=== PATIENT | male | born 1945 | race Caucasian/White ===

== ENCOUNTER 2016-12-17 11:38 | Inpatient (IN) | payer MEDICARE ==
[~2016-12-17 11:38] MED LIST: ACID CONTROL150 M1 PO; ADULT LOW DOSE81 MG PO; ALEVE220 M2 PO; ALEVE220 MG PO; ASPIRIN81 MG PO; B12 HEALTH1000 MCG/1 PO; CIPRO500 M1 PO; CITRUCEL CLEAR539 GM PO; CITRUCEL POWDE454 GM PO; CLONAZEPAM0.5 M1 PO; COLACE-T100 MG PO; EQL FISH OIL 1,1 CAP PO; EXFORGE 5-160 M1 TAB; EXFORGE 5-160 M1 TAB PO; LEXAPRO10 MG PO; MOTRIN IB200 MG PO; NORCO 5/3251 TA1 PO; PRILOSEC20 MG PO; RANITIDINE HCL150 MG; TYLENOL PM EX-1 EAC1 PO; TYLENOL650 MG PO; ZANTAC150 MG PO; [UNRECOGNIZED DRUG - OTHER] PO; [UNRECOGNIZED DRUG - OTHER] TOP; citrucel
[2016-12-17] MEDS ORDERED: KLONOPIN0.5 M1 PO (11:54)
[2016-12-17] MEDS ORDERED: LEXAPRO10 M2 PO (11:55)
[2016-12-17] MEDS ORDERED: ASPIRIN81 M1 PO (11:55)
[2016-12-17] MEDS ORDERED: OMEPRAZOLE20 M4 PO (11:55)
[2016-12-17] MEDS ORDERED: AMLODIPINE-VAL1 EACH PO (11:56)
[2016-12-17] MEDS ORDERED: LEVAQUIN500 M1 PO (11:56)
[2016-12-17] MEDS ORDERED: MUPIROCIN22 G2 TP (11:57)
[2016-12-17 12:44] LABS: BASO % 0.7 % (0-2); EOS % 1.4 % (0-7); EOSINOPHIL ABSOLUTE COUNT 0.1 tho/cmm (0.0-0.7); HCT-HEMATOCRIT 41.1 % (36.0-53.5); HGB-HEMOGLOBIN 14.8 gm/dl (13.5-17.0); IMMATURE GRANULOCYTES ABSOLUTE 0.01 tho/cmm (0-0.03); IMMATURE GRANULOCYTES PERCENT 0.2 % (0-0.3); LYMPH % 19.5 % (20-45); LYMPH ABSOLUTE COUNT 1.1 tho/cmm (0.8-4.5); MCH (MEAN CORPUSCULAR HGB) 33.3 pg (28.0-32.0); MCV (MEAN CELL VOLUME) 92.6 fl (82.0-96.0); MEAN PLATELET VOLUME 9.7 cmc (9.4-12.4); MONOCYTE ABSOLUTE COUNT 0.5 tho/cmm (0.0-1.2); NEUTROPHILS % 69.2 % (40-80); PLATELET COUNT 208 tho/cmm (150-450); RED BLOOD COUNT 4.44 mil/cmm (4.40-5.70); RED CELL DISTRIBUTION WIDTH 12.5 % (12.4-16.4); WHITE BLOOD COUNT 5.8 tho/cmm (4.0-10.0)
[2016-12-17 12:54] LABS: ALB/GLOB RATIO 1.2 (0.8-2.0); ALBUMIN 4.2 g/dl (3.5-5.0); ALKALINE PHOSPHATASE 57 U/L (33-138); ALT/SGPT 29 U/L (12-78); ANION GAP 17 mmol/L (0-20); AST/SGOT 29 U/L (10-40); BILIRUBIN,TOTAL 0.6 mg/dl (0.0-1.5); BLOOD UREA NITROGEN 11 mg/dl (6-24); CALCIUM 8.8 mg/dl (8.5-10.5); CARBON DIOXIDE-VENOUS 21 mmol/L (22-32); CHLORIDE 105 mmol/l (96-110); CREATININE 0.91 mg/dl (0.60-1.30); GLUCOSE 97 mg/dL (70-110); SODIUM 139 mmol/L (135-145); eGFR VALUE FOR BLACK >90 mL/Min
[2016-12-17 13:10] LABS: ESR-ERYTHROCYTE SED RATE 2 mm/hr (0-20)
[2016-12-17 13:11] LABS: PROCALCITONIN <0.05 ng/ml (0.05-0.09)
[2016-12-17 13:24] LABS: URINE APPEARANCE CLEAR; URINE BILIRUBIN NEGATIVE (NEG); URINE BLOOD NEGATIVE (NEG); URINE COLOR YELLOW; URINE GLUCOSE (UA) NEGATIVE (NEG); URINE KETONE NEGATIVE (NEG); URINE LEUKOCYTE ESTERASE NEGATIVE (NEG); URINE NITRITE NEGATIVE (NEG); URINE PROTEIN NEGATIVE (NEG); URINE SPECIFIC GRAVITY 1.005 (1.003-1.030)
[2016-12-17] MEDS ORDERED: COLESTIPOL HCL1 G2 PO (13:25)
[2016-12-17] MEDS ORDERED: PAIN RELIEVER1 EAC3 PO (13:27)
[2016-12-18 03:00] LABS: URINE BILIRUBIN NEGATIVE (NEG); URINE BLOOD NEGATIVE (NEG); URINE GLUCOSE (UA) NEGATIVE (NEG); URINE KETONE NEGATIVE (NEG); URINE LEUKOCYTE ESTERASE NEGATIVE (NEG); URINE NITRITE NEGATIVE (NEG); URINE PROTEIN NEGATIVE (NEG)
[2016-12-18 03:02] LABS: URINE APPEARANCE CLEAR; URINE COLOR PALE YELLOW
[2016-12-18 03:05] LABS: BASO % 0.6 % (0-2); EOSINOPHIL ABSOLUTE COUNT 0.1 tho/cmm (0.0-0.7); HGB-HEMOGLOBIN 13.1 gm/dl (13.5-17.0); IMMATURE GRANULOCYTES ABSOLUTE 0.01 tho/cmm (0-0.03); IMMATURE GRANULOCYTES PERCENT 0.2 % (0-0.3); LYMPH % 25.6 % (20-45); LYMPH ABSOLUTE COUNT 1.3 tho/cmm (0.8-4.5); MCH (MEAN CORPUSCULAR HGB) 32.9 pg (28.0-32.0); MCHC MEAN CORPUSCULAR HGB CONC 35.4 % (32.0-36.0); MEAN PLATELET VOLUME 9.2 cmc (9.4-12.4); MONO % 10.5 % (0-12); MONOCYTE ABSOLUTE COUNT 0.5 tho/cmm (0.0-1.2); NEUTROPHIL ABSOLUTE COUNT 3.1 tho/cmm (1.6-8.0); NEUTROPHIL-AUTOMATED 3.1 tho/cmm (1.6-8.0); NEUTROPHILS % 61.1 % (40-80); PLATELET COUNT 167 tho/cmm (150-450); RED BLOOD COUNT 3.98 mil/cmm (4.40-5.70); RED CELL DISTRIBUTION WIDTH 12.6 % (12.4-16.4)
[2016-12-18 03:06] LABS: URINE EPITHELIAL CELLS 0-2 /[HPF] (0-10); URINE RBC 0 /[HPF] (0-5); URINE WBC 0 /[HPF] (0-5)
[2016-12-18 03:17] LABS: ALB/GLOB RATIO 1.1 (0.8-2.0); ALBUMIN 3.5 g/dl (3.5-5.0); ALKALINE PHOSPHATASE 49 U/L (33-138); ALT/SGPT 22 U/L (12-78); ANION GAP 13 mmol/L (0-20); AST/SGOT 21 U/L (10-40); BLOOD UREA NITROGEN 10 mg/dl (6-24); CALCIUM 8.5 mg/dl (8.5-10.5); CARBON DIOXIDE-VENOUS 25 mmol/L (22-32); CHLORIDE 107 mmol/l (96-110); CREATININE 1.01 mg/dl (0.60-1.30); GLUCOSE 112 mg/dL (70-110); POTASSIUM 3.7 mmol/L (3.7-5.1); SODIUM 141 mmol/L (135-145); eGFR VALUE FOR BLACK 86 mL/Min
[2016-12-18 03:21] LABS: CHOLESTEROL 162 mg/dl (120-200); HDL CHOLESTEROL 89 mg/dl (40-60); LDL CHOLESTEROL 49 mg/dl (0-99); TRIGLYCERIDES 124 mg/dl (<149); VLDL 25 mg/dl (0-30)
[2016-12-18 03:22] LABS: BILIRUBIN,TOTAL 1.1 mg/dl (0.0-1.5)
[2016-12-18 10:38] LABS: TSH-THYROID STIMULATING HORM. 2.65 uIU/ml (0.40-3.80)
[2016-12-20 04:35] LABS: HGB-HEMOGLOBIN 13.6 gm/dl (13.5-17.0); PLATELET COUNT 167 tho/cmm (150-450)
[2016-12-20] MEDS ORDERED: CULTURELLE1 EAC1 PO (11:04)
[2016-12-20] MEDS ORDERED: MULTIVITAMIN PO (11:06)
[2016-12-20] MEDS ORDERED: DOXYCYCLINE PO (11:08)
[2016-12-20] MEDS ORDERED: ASPIRIN325 M3 PO (11:14)
== END 2016-12-20 11:40 | DRG 602 ==
LOC: EDMED 11:38 → EMR2 16:14 → 5EB 17:09
PROVIDERS: Emergency Medicine; ADMIT Family Medicine
PROC: 5A09357 Assistance with Respiratory Ventilation, Less than 24 Consecutive Hours, Continuous Positive Airway Pressure (ICD-10-PCS; principal; 2016-12-17)
DX: L03.114 Cellulitis of left upper limb (principal); G92 Toxic encephalopathy; R47.01 Aphasia; F41.9 Anxiety disorder, unspecified; I10 Essential (primary) hypertension; R07.89 Other chest pain; Z86.73 Personal history of transient ischemic attack (TIA), and cerebral infarction without residual deficits; E78.5 Hyperlipidemia, unspecified; Z79.82 Long term (current) use of aspirin; Z88.2 Allergy status to sulfonamides; Z88.8 Allergy status to other drugs, medicaments and biological substances; Z85.46 Personal history of malignant neoplasm of prostate; F10.10 Alcohol abuse, uncomplicated; K21.9 Gastro-esophageal reflux disease without esophagitis; R55 Syncope and collapse
CPT/HCPCS: A9577; G8978-GO-CH; G8979-GO-CH; G8980-GO-CH; G8987-GO-CH; G8988-GO-CH; G8989-GO-CH; G9162-GN-CJ; G9163-GN-CI; J1650; J1885; J2270; J2543; J3370; J7030; J7050